=== PATIENT | male | born 1990 | race Caucasian/White ===

== ENCOUNTER 2020-12-07 12:15 | Emergency (ER) | payer SELFPAY ==
[2020-12-07 12:28] VITALS: BP 147/80
--- NOTE | 2020-12-07 13:43 | ER Document Report ---
ED Extremity Problem, Lower - General Chief Complaint: Foot Pain Stated Complaint: RIGHT FOOT,ANKLE PAIN Time Seen by Provider: 12/07/20 13:39 Notes: CHIEF COMPLAINT: Right foot pain HPI: 30-year-old male presenting with plantar right foot pain that began last night. Did not take any medications for it. No specific trauma. Hurts to walk. ROS: See HPI - all other systems were reviewed and are otherwise negative Constitutional: no fever Integumentary: no rash Allergy: no hives Musculoskeletal: + extremity pain or swelling Neurological: no numbness/tingling, no weakness MEDICATIONS: I agree with the patient medications as charted by the RN. ALLERGIES: I agree with the allergies as charted by the RN. PAST MEDICAL HISTORY/PAST SURGICAL HISTORY: Reviewed and agree as charted by RN. SOCIAL HISTORY: Reviewed and agree as charted by RN. FAMILY HISTORY: No significant familial comorbid conditions directly related to patient complaint EXAM: Reviewed vital signs as charted by RN. CONSTITUTIONAL: Alert and oriented and responds appropriately to questions. Well-appearing; well-nourished HEAD: Normocephalic; atraumatic EYES: Conjunctivae clear, sclerae non-icteric ENT: normal nose; no rhinorrhea; moist mucous membranes NECK: Supple without meningismus CARD: symmetric distal pulses RESP: Normal chest excursion without splinting or tachypnea ABD/GI: non-distended BACK: The back appears normal EXT: Normal ROM in all joints; no cyanosis, no effusions, no edema. No visible bruising or soft tissue swelling to the right foot. There is no tenderness over the medial or lateral malleolus of the right ankle. There is tenderness on the plantar aspect of the soft tissues of the right foot. There is no tenderness on the dorsal aspect of the foot. Dorsalis pedis and posterior tibial pulses are present in the right foot and ankle. Sensation is intact in the toes with capillary refill less than 3 seconds SKIN: Normal color for age and race; warm; dry; good turgor; no acute lesions noted NEURO: Moves all extremities equally; Motor and sensory function intact PSYCH: The patient's mood and manner are appropriate. Grooming and personal hygiene are appropriate. MDM: 30-year-old male with pain to the plantar aspect of the right foot. Likely a plantar fasciitis or plantar fascial injury. There was no specific trauma. Will obtain an x-ray to evaluate the bone structure if negative for acute findings will treat with anti-inflammatories ice follow-up orthopedics Past Medical History - Social History Smoking Status: Unknown if Ever Smoked Family History: Reviewed & Not Pertinent Physical Exam - Vital signs Vitals: Temp Pulse Resp BP Pulse Ox 98.2 F 73 18 147/80 H 99 12/07/20 12:26 12/07/20 12:12/07/20 12:12/07/20 12:12/07/20 12:26 Course - Re-evaluation Re-evalutation: 12/07/20 14:21 X-ray to my review does not reveal evidence of fracture. Will discharge home to follow-up with orthopedics - Vital Signs Vital signs: Temp Pulse Resp BP Pulse Ox 98.2 F 73 18 147/80 H 99 12/07/20 12:26 12/07/20 12:12/07/20 12:12/07/20 12:12/07/20 12:26 - Laboratory Results Critical Laboratory Results Reviewed: No Critical Results - Radiology Results Critical Radiology Results Reviewed: No Critical Results Discharge - Discharge Clinical Impression: Plantar fasciitis Condition: Stable Disposition: HOME, SELF-CARE Instructions: Plantar Fasciitis or Heel Spur ([facility]) Additional Instructions: Ice to the bottom of the foot 2-3 times daily for 5 to 10 minutes at a time to help with inflammation and pain. Do not place ice directly on the skin. Take Voltaren consistently for pain and inflammation. Stretch the foot 2-3 times daily. Follow-up closely with orthopedics for further evaluation and treatment call for appointment Prescriptions: Diclofenac Sodium [Voltaren 50 Mg Tablet.] 50 mg PO BID #20 tablet. Referrals: YESENIA MILLER JR, DO [ACTIVE PROVISIONAL STAFF] - Follow up as needed
[2020-12-07] MEDS ORDERED: KETOROLAC TROMETHAMINE 60 MG/2 ML SDV IM ONE (14:22)
--- NOTE | 2020-12-07 14:37 | RADIOLOGY REPORT (SQ) ---
EXAM DESCRIPTION: FOOT RIGHT COMPLETE IMAGES COMPLETED DATE/TIME: 12/07/2020 1:17 pm REASON FOR STUDY: pain. Pain on top of foot. No known injury. COMPARISON: None. NUMBER OF VIEWS: Three views. TECHNIQUE: AP, lateral and oblique radiographic images acquired of the right foot. LIMITATIONS: None. FINDINGS: MINERALIZATION: Normal. BONES: No acute fracture or dislocation. No worrisome bone lesions. JOINTS: No effusions. SOFT TISSUES: No soft tissue swelling. No foreign body. OTHER: No other significant finding. IMPRESSION: NEGATIVE STUDY OF THE RIGHT FOOT. NO RADIOGRAPHIC EVIDENCE OF ACUTE INJURY. TECHNICAL DOCUMENTATION: JOB ID: [id number] 2010 [employer]- All Rights Reserved Reading location - IP/workstation name: [email or web address]
== END 2020-12-07 16:28 | disposition home or self-care (01) ==
LOC: ER 12:15
DX: M72.2 Plantar fascial fibromatosis (principal); M79.671 Pain in right foot
CPT/HCPCS: 99284; 96372; 73630; J1885